=== PATIENT | male | born 1960 | race Caucasian/White ===

== ENCOUNTER 2024-06-30 11:13 | Emergency (ER) | payer OTHER, SELFPAY ==
[2024-06-30 11:22] VITALS: BP 169/97; PULSE 65; RESP 20; TEMP 36.5; O2SAT 99
--- NOTE | 2024-06-30 11:30 | ED.GENADULT ---
HPI - General Adult General Chief complaint: Neck Pain/Injury Stated complaint: Shoulder Pain/Neck Pain/Shortness of Breath History of Present Illness HPI narrative: Patient presents for evaluation of chronic shoulder pain. No new injury no shoulder pain at present no shortness of breath no chest pain. Patient has not seen an doctor in over 2 years. Patient states he is here to establish care with a primary care provider. Patient denies any cough no cold symptoms no fever no body ache. Patient requesting a list of physicians in the area so that he might establish primary care. Related Data Home Medications Medication Instructions Recorded Confirmed No Home Medications 06/30/24 06/30/24 Allergies Allergy/AdvReac Type Severity Reaction Status Date / Time No Known Allergies Allergy Verified 06/30/24 11:30 Review of Systems Review of Systems: CONSTITUTIONAL: Denies fever, chills, or sweats. EYES: Denies visual changes, redness, or discharge. ENT: Denies rhinorrhea, congestion, sore throat, or otalgia. CARDIOVASCULAR: Denies chest pain, palpitations, or edema. RESPIRATORY: Denies cough or dyspnea. GASTROINTESTINAL: Denies abdominal pain, nausea, vomiting, or diarrhea. GENITOURINARY: Denies dysuria or hematuria. SKIN: Denies rash or itching. MUSCULOSKELETAL: Denies back pain, joint pain, or myalgia. NEUROLOGIC: Denies headache, numbness, or weakness. PSYCHIATRIC: Denies anxiety or depression. PMFSH Comments At time of signature, agree with nursing past medical, surgical, social and family history. There is no relevant family history pertinent to the presenting complaint Exam Narrative: GENERAL: Well-appearing, well-nourished, and in no acute distress. HEAD: Normocephalic, atraumatic. EYES: PERRLA and EOMI. ENT: Nares clear, no rhinorrhea or epistaxis. Mucous membranes moist. NECK: Supple. CHEST: Clear to auscultation. No respiratory distress. HEART: Regular rate and rhythm. No murmur heard. Normal peripheral pulses. ABDOMEN: Soft, nontender, nondistended, normal active bowel sounds. EXTREMITIES: Normal range of motion. No edema. Bilateral shoulder exam NO SWELLING, BRUISING, SKIN CHANGES. SKIN INTACT. NORMAL RADIAL PULSE. NO DEFORMITY OF SHOULDER. NO CLAVICLE TENDERNESS. NORMAL UE SENSATION AND STRENGTH. ROM EVALUATED - CAN RAISE UE ABOVE SHOULDER, CAN ABDUCT, ADDUCT, EXTERNALLY ROTATE AND CAN INTERNALLY ROTATE AND RAISE THUMB UP THE SPINE. NO AC JOINT TENDERNESS, CAN CROSS ARM HORIZONTALLY AND PLACE HAND ON OPPOSITE SHOULDER, NO WINGING OF THE SCAPULA. SUPRASPINATUS APPEARS NORMAL WITH ARMS STRAIGHT OUT AT 30 DEGREES, THUMB DOWN , CAN ABDUCT AGAINST RESISTANCE. SKIN: Warm, dry, no rash. NEURO: No focal deficits. Alert and oriented x3. Margarita Coma Scale Eye Opening: Spontaneous 4 Margarita Coma Scale Motor: Obeys Commands 6 [place] Coma Scale Verbal: Oriented 5 [place] Coma Scale Total 15 Course Course Level of Care: Express Care Visit Vital Signs Vital signs: Vital Signs Temperature 36.5 C 06/30/24 11:22 Pulse Rate 65 06/30/24 11:22 Respiratory Rate 20 06/30/24 11:22 Blood Pressure 169/97 H 06/30/24 11:22 Pulse Oximetry 99 06/30/24 11:22 Oxygen Delivery Room Air 06/30/24 11:22 Temperature 36.5 C 06/30/24 11:22 Pulse Rate 65 06/30/24 11:22 Respiratory Rate 20 06/30/24 11:22 Blood Pressure 169/97 H 06/30/24 11:22 Pulse Oximetry 99 06/30/24 11:22 Oxygen Delivery Room Air 06/30/24 11:22 Please BARRERA schedule a followup visit with your personal physician for further evaluation and treatment. Including recheck and discussion of your blood pressure. If your symptoms persist, change or worsen significantly before you can contact your personal physician then please, without delay, go to the emergency department for further evaluation Medical Decision Making Vital Signs Vital Signs: Vital Signs Temperature 36.5 C 06/30/24 11:22 Pulse Rate 65 06/30/24 11:22 Respiratory Rate 20 06/30/24 11:22 Blood Pressure 169/97 H 06/30/24 11:22 Pulse Oximetry 99 06/30/24 11:22 Oxygen Delivery Room Air 06/30/24 11:22 Temperature 36.5 C 06/30/24 11:22 Pulse Rate 65 06/30/24 11:22 Respiratory Rate 20 06/30/24 11:22 Blood Pressure 169/97 H 06/30/24 11:22 Pulse Oximetry 99 06/30/24 11:22 Oxygen Delivery Room Air 06/30/24 11:22 Please BARRERA schedule a followup visit with your personal physician for further evaluation and treatment. Including recheck and discussion of your blood pressure. If your symptoms persist, change or worsen significantly before you can contact your personal physician then please, without delay, go to the emergency department for further evaluation Discharge Plan Discharge Clinical Impression: Blood pressure elevated without history of HTN, Elevated blood pressure reading Patient Disposition: Home, Self-Care Condition: Stable Instructions: Heart Healthy Diet (DC), Low-Sodium Diet (ED) Additional Instructions: Monitor blood pressure at home and keep the blood pressure diary. Follow low salt low cholesterol diet Follow-up with with primary care provider for further evaluation and workup. If any chest pain shortness of breath or worsening of shoulder pain occurs please go to emergency room immediately further evaluation treatment Prescriptions: No Action No Home Medications Follow-up/Referrals: PHYSICIAN,ALLERGY AND IMMUNOLOGY CHIEF [Primary Care Provider] - Huang Gleason MD [Physician] -
== END 2024-06-30 11:48 | disposition home or self-care (01) ==
PROVIDERS: Emergency Provider Nurse Practitioner Family
DX: R03.0 Elevated blood-pressure reading, without diagnosis of hypertension (principal)
CPT/HCPCS: 99202; G0463